=== PATIENT | male | born 1955 | race Caucasian/White ===

== ENCOUNTER → 2016-05-09 | Outpatient (CLI) | payer OTHER ==
[~2016-05-09] MED LIST: 00186-0370-20 IH; CELEXA 20MG20 MG/TAB PO; FISH OIL 1000MG1 CAP PO; FISH OIL CONCEN1 SGL PO; FLOMAX 0.40.4 MG/CAP PO; FLOMAX0.4 MG PO; HCTZ 25MG TAB25 MG PO; IMITREX25 MG PO; LEVAQUIN 750MG750 M1; LEXAPRO 5MG5 MG PO; LIPITOR20 MG PO; MULTIPLE VITAMI1 CAP PO; NORCO 325 MG-51 TAB PO; OMEGA 31000 MG; PERCOCET 325 MG1 TA2 PO; PHENERGAN 25 TA25 MG PO; PRILOTC; PRINIVIL10 MG PO; ROXICODONE 55 MG/TAB PO; SINGULAIR 110 MG/TAB PO; SPIRIVA18 MCG IH; TOPAMAX 100MG100 M1 PO; TOPROL XL100 MG PO; TRICOR145 MG PO; VENTOLIN0.09 MG IH; XANAX 1MG1 MG PO; ZOFRAN 4MG T4 MG/TAB PO; ZYRTEC10 MG PO
== END ==
LOC: COL.RAD 13:13
DX: R26.89 Other abnormalities of gait and mobility (principal); S09.90XA Unspecified injury of head, initial encounter
CPT/HCPCS: A9585

== ENCOUNTER → 2017-07-19 | Emergency (ER) | payer OTHER ==
[~2017-07-19] VITALS: Ht 165.1 cm; Wt 106.8 kg
[~2017-07-19] MED LIST changes: +HCTZ12.5TAB PO; +IMITREX 6M6 MG/0.5 M SQ; +LIPITOR 40MG TA40 MG PO; +LOPRESSOR 550 MG/TAB PO; +PRILOSEC 20MG20 MG PO; +ZESTRIL30 MG PO
[2017-07-19 20:14] VITALS: BP 138/85; PULSE 65; TEMP 97.8
== END ==
LOC: COL.ER 19:44
DX: S62.633A Displaced fracture of distal phalanx of left middle finger, initial encounter for closed fracture (principal); S61.213A Laceration without foreign body of left middle finger without damage to nail, initial encounter; S61.215A Laceration without foreign body of left ring finger without damage to nail, initial encounter; S80.02XA Contusion of left knee, initial encounter; S50.812A Abrasion of left forearm, initial encounter; I10 Essential (primary) hypertension; G43.909 Migraine, unspecified, not intractable, without status migrainosus; G89.29 Other chronic pain; M54.9 Dorsalgia, unspecified; Z23 Encounter for immunization; Z79.52 Long term (current) use of systemic steroids; V29.9XXA Motorcycle rider (driver) (passenger) injured in unspecified traffic accident, initial encounter; Y92.411 Interstate highway as the place of occurrence of the external cause

== ENCOUNTER → 2018-02-18 | Outpatient (CLI) | payer OTHER | LOC: COL.RAD 10:32 | DX: Z02.71 Encounter for disability determination (principal); M51.36 Other intervertebral disc degeneration, lumbar region; M41.86 Other forms of scoliosis, lumbar region; M50.31 Other cervical disc degeneration, high cervical region; S13.150A Subluxation of C4/C5 cervical vertebrae, initial encounter ==

== ENCOUNTER 2018-08-28 16:12 | Emergency (ER) | payer SELFPAY ==
[~2018-08-28] VITALS: Ht 162.6 cm; Wt 106.8 kg
[2018-08-28 16:19] VITALS: BP 141/82; TEMP 97.6
[2018-08-28] MEDS ORDERED: CEPHALEXIN500 M1 PO (16:46)
[2018-08-28 17:09] VITALS: PULSE 79
== END 2018-08-28 17:09 | disposition home or self-care (01) ==
LOC: COL.ER 16:12
DX: S51.832A Puncture wound without foreign body of left forearm, initial encounter (principal); L03.114 Cellulitis of left upper limb; I10 Essential (primary) hypertension; F41.9 Anxiety disorder, unspecified; Z23 Encounter for immunization; W26.8XXA Contact with other sharp object(s), not elsewhere classified, initial encounter; Z87.891 Personal history of nicotine dependence

== ENCOUNTER 2021-01-10 09:34 | Inpatient (IN) | payer MEDICARE ==
[~2021-01-10] VITALS: Ht 165.1 cm; Wt 93.4 kg
[~2021-01-10 09:34] MED LIST changes: +CEPHALEXIN500 M1 PO
[2021-01-19] MEDS ORDERED: VENTOLIN0.09 MG IH (13:39)
[2021-01-19] MEDS ORDERED: LIPITOR 40MG TA40 MG PO (13:41)
[2021-01-19] MEDS ORDERED: 00186-0370-20 IH (13:42)
[2021-01-19] MEDS ORDERED: FLEXERIL 1010 MG/TAB PO (13:43)
[2021-01-19] MEDS ORDERED: CELEXA40 MG PO (13:43)
[2021-01-19] MEDS ORDERED: ALLEGRA 180MG180 MG PO (13:44)
[2021-01-19] MEDS ORDERED: FISH OIL 1000MG1 CAP PO (13:44)
[2021-01-19] MEDS ORDERED: NEURONTIN400 MG/CAP PO (13:45)
[2021-01-19] MEDS ORDERED: PRINZIDE 12.5 M1 TA1 PO (13:46)
[2021-01-19] MEDS ORDERED: GLUCOPHAGE XR500 M1 PO (13:47)
[2021-01-19] MEDS ORDERED: LOPRESSOR 550 MG/TAB PO (13:48)
[2021-01-19] MEDS ORDERED: NYSTATIN CREAM15 GM TP (13:49)
[2021-01-19] MEDS ORDERED: SINGULAIR 110 MG/TAB PO (13:49)
[2021-01-19] MEDS ORDERED: PRILOSEC 20MG20 MG PO (13:50)
[2021-01-19] MEDS ORDERED: ZOFRAN 4MG T4 MG/TAB PO (13:50)
[2021-01-19] MEDS ORDERED: ROXICODONE 55 MG/TAB PO (13:51)
[2021-01-19] MEDS ORDERED: MIRALAX119G PO (13:52)
[2021-01-19] MEDS ORDERED: REVATIO20 MG PO (13:53)
[2021-01-19] MEDS ORDERED: SPIRIVA RE2.5 MCG/Ac IH (13:54)
[2021-01-19] MEDS ORDERED: IMITREX 6M6 MG/0.5 M SQ (13:55)
[2021-01-19] MEDS ORDERED: TOPAMAX50 MG PO (13:56)
[2021-01-19] MEDS ORDERED: FLOMAX 0.40.4 MG/CAP PO (14:51)
[2021-02-14] VITALS (12 sets, daily range): BP systolic 95–117; BP diastolic 57–74; PULSE 53–86; TEMP 97.6–98.8
--- NOTE | 2021-02-14 06:30 | NUR ---
The patient ambulated back to [facility] [facility] independently using a steady gait and appeared to tolerate the activity well. Vital signs obtained. Consent signed. 18G IV started in left hand with one stick, LR infusing without difficulty. Heart Reg. Lungs clear. Bowel sounds audible. brought back to be at his bedside. Call light is within reach. Warm blankets provided. The patient denies any further needs. Will continue to monitor the patient.
[2021-02-14 06:41] LABS: BASO # 0.1 K/mm3 (0.0-0.2); BASO % 0.8 % (0.0-2.0); EOS # 0.1 K/mm3 (0.0-0.7); EOS % 1.7 % (0-4.0); GRAN # 3.9 K/mm3 (1.4-6.5); GRAN % 54.2 % (42.2-75.2); HEMOGLOBIN 15.2 g/dl (13.5-18.0); LYMPH # 2.6 K/mm3 (1.2-3.4); LYMPH % 36.6 % (20.0-51.0); MEAN CELL VOLUME 90 fl (80.0-100.0); MEAN CORPUSCULAR HEMOGLOBIN 31 pg (27.0-31.0); MEAN CORPUSCULAR HGB CONC 34 g/dl (33.0-37.0); MONO # 0.5 K/mm3 (0.1-0.6); MONO % 6.4 % (1.7-9.3); PLATELET COUNT 282 K/mm3 (130-400); RED BLOOD COUNT 4.99 M/mm3 (4.20-5.60); REDCELL DISTRIBUTION WIDTH-CV 12.3 % (11.5-14.5)
[2021-02-14 06:59] LABS: ALBUMIN 4.1 gm/dL (3.4-4.8); BILIRUBIN,TOTAL 0.3 mg/dL (0.2-1.2); CALCIUM 10.4 mg/dL (8.4-10.2); CREATININE, serum 1.21 mg/dL (0.72-1.25); POTASSIUM 3.2 mmol/L (3.5-4.5)
--- NOTE | 2021-02-14 07:30 | NUR ---
The patient was taken back via cart to the operating room at this time. The patient's chart was sent with him to surgery. The patient had an epidural placed in his outpatient room prior to surgery so his stepped out to get breakfast and will be in the waiting room for the surgery. The patient's belongings were taken over to the recovery room and will be transferred with him to the 3rd floor post operatively.
--- NOTE | 2021-02-14 10:55 | NUR ---
returned to room per bed from PACU, awake and alert, IV infusing and placed on pump at 100ml/hr, O2 on at 2L/NC and O2 sat 99%, up cath patent draining small amount clear yellow urine, rolled to side and epidural in place, abdominal incisions with bandaids and metapore tape CD&I, SCDs on bilaterally, full assessment completed, see interventions for further info,
--- NOTE | 2021-02-14 11:30 | NUR ---
resting between checks with resp quiet and easy, awakens easily and denies pain or needs
--- NOTE | 2021-02-14 12:15 | NUR ---
continues to dose between checks, arouses easily when awakened and denies needs
--- NOTE | 2021-02-14 13:15 | NUR ---
Dr Servin notified that he has only had approx 20ml clear yellow urine in up since returning to unit, order received
--- NOTE | 2021-02-14 13:45 | NUR ---
awakens easily and takes po meds as ordered, Normal saline bolus started
--- NOTE | 2021-02-14 14:46 | NUR ---
awake and watching TV when entered room, has approx 50ml clear yellow urine out since starting bolus, denies pain or nausea, will provide jello per his request
--- NOTE | 2021-02-14 17:05 | NUR ---
sleeping when entered room, offered full liquids and will have pudding at this time
--- NOTE | 2021-02-14 18:16 | NUR ---
had pudding and tolerated well, states he is just sleepy
--- NOTE | 2021-02-14 18:58 | NUR ---
bedside shift report given to LUIS Li
--- NOTE | 2021-02-14 19:40 | NUR ---
Pt. laying in bed. Pt. is A&OX3, assessment complete. IV to lt. hand patent, IV fluids infusing per orders. INT to rt. hand patent. Pt. reports epidural is covering pain. Epidural intact. Abd. lap sites x6 CDI with bandaids. Small abd. midline noted cdi with gauze. Santos catheter to DD, clear yellow urine noted. Pt. denies further needs, call light within reach.
[2021-02-15] VITALS (9 sets, daily range): BP systolic 96–122; BP diastolic 47–67; PULSE 55–69; TEMP 98.1–100
[2021-02-15 07:12] LABS: HEMATOCRIT 36.7 % (42.0-52.0); HEMOGLOBIN 12.2 g/dl (13.5-18.0)
--- NOTE | 2021-02-15 07:15 | NUR ---
Assessment complteted. Pt has INT to R hand & IV to L hand, both intact w/ no redness/edema. Epidural in place & covered w/ tape & is CDI, pt states he has "used it a couple times throughout the night & this morning". Pt had ABD lap sites x6 CDI w/ bandaids & SM ABD midline incision covered w/ gauze. Gauze looked to have dried red drainage. Abdomen was a little distended & soft. Pt reports passing flatus frequently. Pt has O2 on @ 2L.
[2021-02-15 07:23] LABS: CALCIUM 9.2 mg/dL (8.4-10.2); CREATININE, serum 1.81 mg/dL (0.72-1.25); POTASSIUM 3.6 mmol/L (3.5-4.5)
--- NOTE | 2021-02-15 07:45 | NUR ---
Pt has up cath w/ securement device. Cath and raina care provided. Pt has clear yellow output.
--- NOTE | 2021-02-15 07:46 | NUR ---
Hgb 12.[address] Servin.
--- NOTE | 2021-02-15 09:45 | NUR ---
Initial visit; Patient thanked [employer] for looking in on him, listening and offering God's blessings.
--- NOTE | 2021-02-15 10:30 | NUR ---
Patient alert and oriented, answers questions appropriately. See assessment. Abdomen soft, tender, non distended. Bowel sounds active x4 quads. +Flatus. Low transverse and lap sites x6 with dressing CDI. Santos catheter in place, draining clear yellow urine. Epidural catheter in place to low back, tegaderm intact, scant amount of serosanguinous drainage noted. BLE with pulses intact, no tingling, numbness noted per patients norm. No c/o at this time.
--- NOTE | 2021-02-15 11:14 | NUR ---
Pt ambulated in trotter for 5 min. Tolerated well and said he had "little pain" when ambulating. Pt now up in recliner O2 off & at 98 & respirations 18.
--- NOTE | 2021-02-15 11:21 | NUR ---
CHEY met with the patient to discuss discharge plan. The patient lives in [place] with his , Lizzette (ph#[phone]). He reports independence with ADLs and has a cane and CPAP. The patient's PCP is Dr. Melissa Mancilla and he receives his medications from [facility]. He reports no difficulties obtaining his meds. The patient does not have a DPOA-HC, but he was interested in obtaining a form. CHEY provided. The patient plans to return home with his upon discharge. No additional needs at this time. *Discharge plan: home with *
--- NOTE | 2021-02-15 21:10 | NUR ---
PT IN BED, HAS OXYGEN ON AT 1L/NC, PT WEARS CPAP AT HOME. IS ALERT AND ORIENTED X4. HAS ABD LAP SITES X6 WITH SMALL MIDLINE INCISION. HANSEN TO BSD AND EPIDURAL INFUSING. PT DENIES NEEDS AT THIS TIME.
[2021-02-16 03:55] VITALS: BP 114/68; PULSE 58; TEMP 98.9
--- NOTE | 2021-02-16 06:00 | NUR ---
PT TAKES SCHEDULED AM MED AT THIS TIME. DENIES NEED FOR STRONGER PAIN MEDS.
[2021-02-16 07:02] LABS: CALCIUM 9.3 mg/dL (8.4-10.2); CREATININE, serum 1.75 mg/dL (0.72-1.25); POTASSIUM 3.7 mmol/L (3.5-4.5)
[2021-02-16 07:55] VITALS: TEMP 98.1
[2021-02-16 08:05] VITALS: BP 114/68; PULSE 62; TEMP 97.8
--- NOTE | 2021-02-16 09:30 | NUR ---
Patient alert and oriented, answers questions appropriately. See assessment. Abdomen soft, non tender, non distended. Bowel sounds active x4 quads. +Flatus. Lap sites and low midline incision to abdomen with edges well approximated, mike intact. Santos catheter in place and patent, draining clear yellow urine. Epidural catheter in place to low back, scant amount of red drainage noted under tegader, no redness noted. PCEA settings verified against the MAR. Sensation and pulses intact to BLE. ERAS protocol reviewed with patient. No c/o at this time.
[2021-02-16 11:14] VITALS: BP 122/76; PULSE 57; TEMP 97.8
--- NOTE | 2021-02-16 14:15 | NUR ---
Santos catheter removed at 1300 per Drs order. Epidural catheter removed at 1300 per Drs order. Tolerated both well. Post education provided.
[2021-02-16 16:25] VITALS: BP 127/71; PULSE 69; TEMP 97.5
--- NOTE | 2021-02-16 20:17 | NUR ---
PT COMPLAINING OF LOWER ABD PAIN/CRAMPING. AMBULATING IN ROOM WITH STEADY GAIT. HS MEDS GIVEN INCLUDING OXYCODONE 10MG PO FOR PAIN. SL TO RT AND LEFT HAND FLUSH WELL.
[2021-02-16 20:24] VITALS: BP 147/82; PULSE 79; TEMP 97.8
--- NOTE | 2021-02-16 22:10 | NUR ---
PT IN BED, REPORTS CONTINUED ABD PAIN. NOTED LAP SITES X6 WITH VENKATESH INTACT, SMALL LOWER MIDLINE WITH VENKATESH INTACT, NO DRAINAGE. MEDICATED WITH MORPHINE 3MG IVP FOR PAIN /.
[2021-02-17 00:04] VITALS: BP 127/72; PULSE 66; TEMP 98.4
[2021-02-17 03:35] VITALS: BP 136/82; PULSE 60; TEMP 97.4
--- NOTE | 2021-02-17 03:38 | NUR ---
PT REPORTS ABD PAIN, MEDICATED WITH OXYCODONE 10MG PO NOW.
--- NOTE | 2021-02-17 05:39 | NUR ---
PT UP IN CHAIR AT BEDSIDE. TAKES SCHEDULED ES TYLENOL AT THIS TIME. HOPING TO GO HOME TODAY.
[2021-02-17] MEDS ORDERED: DAZIDOX10 MG PO ×2 (07:37→07:38)
[2021-02-17 08:45] VITALS: BP 114/74; PULSE 74; TEMP 98.1
--- NOTE | 2021-02-17 09:30 | NUR ---
Patient alert and oriented, answers questions appropriately. See assessment. Abdomen soft, tender, non distended. Bowel sounds active x4 quads. +Flatus. +Bowel movement. Lap sites and low midine incision with edges well approximated, mike intact, no redness or drainage noted, LIZZETTE. Eras protocol reviewed with patient. No c/o at this time.
--- NOTE | 2021-02-17 11:14 | NUR ---
Discharge instructions reviewed with patient and spouse, verbalized understanding. Discharged via wheelchair to auto/home with spouse at 1000.
--- NOTE | 2021-02-17 11:28 | NUR ---
Discharge instructions reviewed with patient and spouse, verbalized understanding. Discharged via wheelchair to auto/home with spouse at 1000.
== END 2021-02-17 10:00 | disposition home or self-care (01) | DRG 658 ==
LOC: SURG 02-14 05:27 → INPTSU 02-14 05:27 → SURG 02-14 07:30
PROVIDERS: ADMIT Urology
PROC: 0WQF0ZZ Repair Abdominal Wall, Open Approach (ICD-10-PCS; 2021-02-14)
PROC: 8E0W3CZ Robotic Assisted Procedure of Trunk Region, Percutaneous Approach (ICD-10-PCS; 2021-02-14)
PROC: 0TT14ZZ Resection of Left Kidney, Percutaneous Endoscopic Approach (ICD-10-PCS; principal; 2021-02-14 07:30)
DX: D30.02 Benign neoplasm of left kidney (principal); N28.1 Cyst of kidney, acquired; D35.00 Benign neoplasm of unspecified adrenal gland; K42.9 Umbilical hernia without obstruction or gangrene
CPT/HCPCS: A4314; J0690; J2270; J7030; J7120

== ENCOUNTER 2021-01-19 12:35 | Day surgery (SDC) | payer MEDICARE ==
[~2021-01-19] VITALS: Ht 165.1 cm; Wt 97.7 kg
[2021-01-19 13:34] VITALS: BP 151/90; PULSE 72; TEMP 98.3
[2021-01-19] MEDS ORDERED: VENTOLIN0.09 MG IH (13:39)
[2021-01-19] MEDS ORDERED: LIPITOR 40MG TA40 MG PO (13:41)
[2021-01-19] MEDS ORDERED: 00186-0370-20 IH (13:42)
[2021-01-19] MEDS ORDERED: FLEXERIL 1010 MG/TAB PO (13:43)
[2021-01-19] MEDS ORDERED: CELEXA40 MG PO (13:43)
[2021-01-19] MEDS ORDERED: FISH OIL 1000MG1 CAP PO (13:44)
[2021-01-19] MEDS ORDERED: ALLEGRA 180MG180 MG PO (13:44)
[2021-01-19] MEDS ORDERED: NEURONTIN400 MG/CAP PO (13:45)
[2021-01-19] MEDS ORDERED: PRINZIDE 12.5 M1 TA1 PO (13:46)
[2021-01-19] MEDS ORDERED: GLUCOPHAGE XR500 M1 PO (13:47)
[2021-01-19] MEDS ORDERED: LOPRESSOR 550 MG/TAB PO (13:48)
[2021-01-19] MEDS ORDERED: SINGULAIR 110 MG/TAB PO (13:49)
[2021-01-19] MEDS ORDERED: NYSTATIN CREAM15 GM TP (13:49)
[2021-01-19] MEDS ORDERED: ZOFRAN 4MG T4 MG/TAB PO (13:50)
[2021-01-19] MEDS ORDERED: PRILOSEC 20MG20 MG PO (13:50)
[2021-01-19] MEDS ORDERED: ROXICODONE 55 MG/TAB PO (13:51)
[2021-01-19] MEDS ORDERED: MIRALAX119G PO (13:52)
[2021-01-19] MEDS ORDERED: REVATIO20 MG PO (13:53)
[2021-01-19] MEDS ORDERED: SPIRIVA RE2.5 MCG/Ac IH (13:54)
[2021-01-19] MEDS ORDERED: IMITREX 6M6 MG/0.5 M SQ (13:55)
[2021-01-19] MEDS ORDERED: TOPAMAX50 MG PO (13:56)
[2021-01-19] MEDS ORDERED: FLOMAX 0.40.4 MG/CAP PO (14:51)
[2021-01-19 15:53] VITALS: TEMP 98.1
[2021-01-19 16:05] VITALS: BP 138/74; PULSE 72
--- NOTE | 2021-01-19 16:05 | NUR ---
Patient returns to room 4 per cart from PACU accompanied by Rosie SMITH and is awake and alert. Temp 97.8 and room air sats 96%. Assisted up to the bathroom. Voids bloody urine and returns to room. Complains of the tip of his penis burning after urination. Resting on cart. Drinking water.
[2021-01-19 16:20] VITALS: BP 141/73; PULSE 72
--- NOTE | 2021-01-19 16:20 | NUR ---
Eating toast and drinking coffee.
[2021-01-19 16:27] VITALS: BP 138/74; PULSE 72
--- NOTE | 2021-01-19 16:30 | NUR ---
Assisted up to the bathroom.
--- NOTE | 2021-01-19 16:35 | NUR ---
Returns to room. Finishes toast and coffee. Again up to the bathroom. Urine is becoming less bloody.
--- NOTE | 2021-01-19 16:50 | NUR ---
IV discontinued and site is free of redness or swelling. Given dismissal instructions and signed. Voices understanding of these and signed. Patient is dressed.
--- NOTE | 2021-01-19 17:10 | NUR ---
Patient dismissed to home driven by spouse and taken to vehicle per wheelchair and assisted into vehicle with instructions in hand.
== END 2021-01-19 17:10 | disposition home or self-care (01) ==
LOC: SDCO 12:35
DX: N20.0 Calculus of kidney (principal); N28.1 Cyst of kidney, acquired; J45.909 Unspecified asthma, uncomplicated; I12.9 Hypertensive chronic kidney disease with stage 1 through stage 4 chronic kidney disease, or unspecified chronic kidney disease; E11.22 Type 2 diabetes mellitus with diabetic chronic kidney disease; N18.30 Chronic kidney disease, stage 3 unspecified; G89.29 Other chronic pain; M54.9 Dorsalgia, unspecified; M19.90 Unspecified osteoarthritis, unspecified site; E11.9 Type 2 diabetes mellitus without complications; K21.9 Gastro-esophageal reflux disease without esophagitis; G47.33 Obstructive sleep apnea (adult) (pediatric); E78.2 Mixed hyperlipidemia; E78.00 Pure hypercholesterolemia, unspecified; E78.1 Pure hyperglyceridemia; E66.9 Obesity, unspecified; F32.9 Major depressive disorder, single episode, unspecified; F41.9 Anxiety disorder, unspecified; Z99.89 Dependence on other enabling machines and devices; Z79.899 Other long term (current) drug therapy; Z87.891 Personal history of nicotine dependence; Z79.84 Long term (current) use of oral hypoglycemic drugs; Z79.891 Long term (current) use of opiate analgesic
CPT/HCPCS: C1769; C2617; J0690; J2405; J2704; J3010; J7120; Q9967

== ENCOUNTER 2021-05-31 10:32 | Emergency (ER) | payer MEDICARE ==
[~2021-05-31] VITALS: Ht 162.6 cm; Wt 90.0 kg
[~2021-05-31 10:32] MED LIST changes: +ALLEGRA 180MG180 MG PO; +CELEXA40 MG PO; +DAZIDOX10 MG PO; +FLEXERIL 1010 MG/TAB PO; +GLUCOPHAGE XR500 M1 PO; +MIRALAX119G PO; +NEURONTIN400 MG/CAP PO; +NYSTATIN CREAM15 GM TP; +PRINZIDE 12.5 M1 TA1 PO; +REVATIO20 MG PO; +SPIRIVA RE2.5 MCG/Ac IH; +TOPAMAX50 MG PO
[2021-05-31 10:54] VITALS: TEMP 98.3
[2021-05-31 11:25] LABS: BASO % 0.4 % (0.0-2.0); EOS % 0.6 % (0.0-4.0); GRAN # 4.1 K/mm3 (1.4-6.5); GRAN % 56.7 % (42.2-75.2); HEMATOCRIT 39.5 % (42.0-52.0); HEMOGLOBIN 13.3 g/dl (13.5-18.0); LYMPH # 2.6 K/mm3 (1.2-3.4); LYMPH % 36.3 % (20.0-51.0); MEAN CELL VOLUME 90 fl (80.0-100.0); MEAN CORPUSCULAR HEMOGLOBIN 30 pg (27-31); MEAN CORPUSCULAR HGB CONC 34 g/dl (33.0-37.0); MEAN PLATELET VOLUME 10.2 fl (7.4-10.4); MONO # 0.4 K/mm3 (0.1-0.6); MONO % 5.7 % (1.7-9.3); PLATELET COUNT 230 K/mm3 (130-400); RED BLOOD COUNT 4.39 M/mm3 (4.20-5.60); REDCELL DISTRIBUTION WIDTH-CV 13.1 % (11.5-14.5)
[2021-05-31 11:49] LABS: ALBUMIN 4.7 gm/dL (3.4-4.8); BILIRUBIN,TOTAL 0.5 mg/dL (0.2-1.2); CALCIUM 9.9 mg/dL (8.4-10.2); CREATININE, serum 2.01 mg/dL (0.72-1.25); POTASSIUM 4.1 mmol/L (3.5-4.5); TOTAL PROTEIN 7.9 gm/dL (6.2-8.1)
[2021-05-31 12:58] VITALS: BP 115/76; PULSE 87
== END 2021-05-31 12:58 | disposition home or self-care (01) ==
LOC: COL.ER 10:32
PROVIDERS: Emergency Medicine
DX: K59.00 Constipation, unspecified (principal); R94.4 Abnormal results of kidney function studies

== ENCOUNTER 2022-08-06 21:30 | Emergency (ER) | payer MEDICARE ==
[~2022-08-06] VITALS: Ht 165.1 cm; Wt 78.2 kg
[~2022-08-06 21:30] MED LIST changes: +ANTIVERT 25MG25 MG PO
[2022-08-06 21:33] VITALS: TEMP 97.7
[2022-08-06 22:20] LABS: COLLECTION METHOD CATHETER
[2022-08-06 22:26] LABS: MUCOUS Present (NOT PRESENT); SQUAMOUS EPITHELIAL None Seen /hpf (0-10); URINE APPEARANCE Clear (CLEAR/HAZY); URINE BACTERIA None Seen /hpf (NONE SEEN); URINE BLOOD Negative (NEGATIVE); URINE COLOR Yellow (YELLOW); URINE GLUCOSE Negative (NEGATIVE); URINE KETONE TRACE (NEGATIVE); URINE NITRATE Negative (NEGATIVE); URINE PROTEIN(semi-quant) Negative (NEGATIVE); URINE UROBILINOGEN 0.2 E.U/dL (0.2-1.0)
[2022-08-06 22:40] VITALS: BP 105/70; PULSE 60
[2022-08-12] MEDS ORDERED: CEPHALEXIN500 M1 PO (18:02)
== END 2022-08-06 22:40 | disposition home or self-care (01) ==
LOC: COL.ER 21:30
PROVIDERS: Family Medicine
DX: N40.1 Benign prostatic hyperplasia with lower urinary tract symptoms (principal); R33.8 Other retention of urine